=== PATIENT | male | born 1955 | race Caucasian/White ===

== ENCOUNTER 2021-10-25 08:49 | Day surgery (SDC) | payer MEDICARE ==
[2021-10-25] MEDS ORDERED: Lactated Ringers 1,000 ML IV SCH (09:30)
[2021-10-25] MEDS ORDERED: Nozin Nasal Sanitizer NASBOTH ONE (09:30)
[2021-10-25] MEDS ORDERED: fentaNYL 100 MCG/2 ML SDV ONE (10:09)
[2021-10-25] MEDS ORDERED: Propofol 200 MG/20 ML SDV ONE ×3 (10:09→11:51)
[2021-10-25] MEDS ORDERED: Bupivacaine 0.5% 30 ML SDV ONE (10:09)
[2021-10-25] MEDS ORDERED: Midazolam 1 MG/ML 2 ML SDV ONE ×2 (10:09→11:16)
[2021-10-25] MEDS ORDERED: Bupivacaine 0.5% 50 ML MDV ONE (10:22)
[2021-10-25] MEDS ORDERED: ceFAZolin 2 GM in Premix Bag 1 BAG IV ONE (10:30)
[2021-10-25] MEDS ORDERED: Acetaminophen/oxyCODONE 325-5 MG Tab PO STA (13:18)
[2021-10-25] MEDS ORDERED: oxyCODONE 5 MG Tab PO STA (13:39)
--- NOTE | 2021-10-25 19:57 | OR ---
DATE OF PROCEDURE: 10/25/2021 SURGEON: Floyd Dean MD PREOPERATIVE DIAGNOSES: 1. Partial-thickness rotator cuff tear, left shoulder. 2. Impingement, left shoulder. POSTOPERATIVE DIAGNOSES: 1. Small partial-thickness rotator cuff tear, left shoulder, supraspinatus. 2. Severe impingement, left shoulder. 3. Osteoarthritis with full-thickness articular cartilage loss, humeral head. PROCEDURES: 1. Arthroscopy, left shoulder, with chondroplasty of humeral head. 2. Subacromial decompression with acromioplasty. MOBILE MECHANIC: RJ Mae ANESTHESIA: Interscalene block with sedation. INDICATIONS: Duc is a 66-year-old gentleman with a history of injury to his left shoulder last winter. He had some pain off and on through the summer, but was able to modify his activities enough to tolerate it, and had exacerbation of his pain this fall. MRI and exam are consistent with rotator cuff pathology showing areas of partial-thickness tear and impingement. He now presents for arthroscopy of left shoulder with decompression and repair of rotator cuff as necessary. Risks, benefits, potential complications of the procedure were discussed. DESCRIPTION OF PROCEDURE: After adequate anesthesia was obtained, the patient was placed in the lateral decubitus position and secured with a maldonado bag positioner. The left shoulder and arm were prepped and draped in a sterile fashion and 10 pounds of traction was placed in the shoulder traction unit. A standard posterior portal was established. The scope was introduced and the glenohumeral joint was evaluated. This revealed a completely intact cartilage on the glenoid. Minimal degenerative changes of the glenoid labrum. Biceps tendon was intact. No evidence of SLAP tear. He did, however, have an area of full- thickness articular cartilage loss from the central portion of the humeral head with articular cartilage delaminating around the periphery, resulting in multiple flaps, which were loose, directed toward the defect and still attached around the periphery. These were most prominent anteriorly and posteriorly. The anterior portal was established. The remainder of the joint was evaluated, which showed intact subscapularis. Undersurface of the rotator cuff did show a partial-thickness tear in the supraspinatus. A shaver was used to debride the articular cartilage flaps from around the periphery of the defect, moving the scope from the posterior portal to the anterior portal in order to debride the posterior flaps. The area of the rotator cuff partial thickness tear was marked with a PDS suture through a spinal needle. The scope was removed from the joint and placed in the subacromial space. Moderate amount of bursa was present. The bursa was fairly adherent to the rotator cuff and the anterolateral aspect of the acromion caused fairly severe impingement with limited space. Undersurface of the acromion was cleared of soft tissue with the radiofrequency ablation. The anterolateral edge was delineated and a елена was then used to perform an acromioplasty bevelling the acromion medially and posteriorly, removing approximately 5 mm from the undersurface. This significantly improved visualization of the cuff and decompressed the cuff. The marked area of the rotator cuff was identified and the marking suture was removed. This area was thoroughly evaluated both visually and by palpation with a blunt probe. Integrity of the rotator cuff on the bursal surface was quite good and the area noted on the articular side did not show significant thinning or weakness. A decision was made not to proceed with repair as it was felt that the decompression would significantly improve his pain level and that the tear was less than 50% thickness of the cuff and the remaining portion showed good integrity. The scope was placed back into the glenohumeral joint and the area of the cuff was lightly debrided, removing some small flaps, and the integrity again inspected showing no full-thickness tear and a relatively small area of superficial partial-thickness tear. The scope was then withdrawn. Port sites were closed with 3- 0 Monocryl and Steri-Strips. Sterile dressing was applied. The patient was taken from the operating room in stable condition. There were no complications. Floyd Dean MD /[id number]
== END 2021-10-25 14:15 | disposition home or self-care (01) ==
LOC: JP.SDS 08:49
PROVIDERS: ATTEND Specialist
DX: M75.112 Incomplete rotator cuff tear or rupture of left shoulder, not specified as traumatic (principal); M25.812 Other specified joint disorders, left shoulder; M19.012 Primary osteoarthritis, left shoulder; E03.9 Hypothyroidism, unspecified; F32.9 Major depressive disorder, single episode, unspecified; I12.9 Hypertensive chronic kidney disease with stage 1 through stage 4 chronic kidney disease, or unspecified chronic kidney disease; N18.9 Chronic kidney disease, unspecified; B18.2 Chronic viral hepatitis C; Z79.82 Long term (current) use of aspirin; Z79.899 Other long term (current) drug therapy; Z88.8 Allergy status to other drugs, medicaments and biological substances
CPT/HCPCS: 29826; 29999; A9270; C1713; J0690; J2250; J2704; J3010; J3490; J7120

== ENCOUNTER 2022-09-10 17:30 | Emergency (ER) | payer MEDICARE | END 2022-09-10 19:22 | disposition left against medical advice (07) | LOC: JP.ED 17:30 | DX: L08.9 Local infection of the skin and subcutaneous tissue, unspecified (principal); E11.9 Type 2 diabetes mellitus without complications; I50.9 Heart failure, unspecified | CPT/HCPCS: 99283 ==